=== PATIENT | female | born 1995 | race Caucasian/White ===

== ENCOUNTER 2021-01-12 05:13 | Emergency (ER) | payer OTHER ==
[~2021-01-12] VITALS: Ht 61 cm; Wt 106.6 kg
--- NOTE | 2021-01-12 06:48 | ED Cough/URI ---
General Chief Complaint: Fever-Adult/Adol Stated Complaint: COUGH,FEVER,SOA,SORE THROAT Source: patient History of Present Illness Date Seen by Provider: Jan 12, 2021 Time Seen by Provider: 06:43 Initial Comments PT ARRIVES VIA POV FROM HOME HAS BEEN SICK SINCE Thursday01/09/21 C/O SORE THROAT C/O SUBJECTIVE FEVER C/O COUGH AND CONGESTION C/O HEADACHE C/O BODY ACHES C/O NAUSEA/VOMITING/DIARRHEA YESTERDAY--VOMITED X 5 YESTERDAY, DIARRHEA X 10. NO ABDOMINAL PAIN NO LOSS OF TASTE OR SMELL NO SHORTNESS OF BREATH PT HAS BEEN ABLE TO KEEP DOWN LIQUIDS TODAY AND IS VOIDING A NORMAL AMOUNT STATES SHE DOES NOT NORMALLY TAKE TYLENOL OR MOTRIN BECAUSE THEY MAKE HER NAUSEATED. CHILD WAS SICK WITH SAME SYMPTOMS EARLIER THIS WEEK. HE TESTED NEGATIVE FOR COVID-19 PT HAS NOT BEEN VACCINATED FOR COVID-19 PT DOES NOT WORK PCP: [facility] Allergies and Home Medications Allergies Coded Allergies: acetaminophen (Unverified Allergy, Unknown, Itching, 01/12/21) "throat swells up" Patient Home Medication List Home Medication List Reviewed: Yes Amoxicillin (Amoxicillin) 875 Mg Tablet, 875 MG PO BID Prescribed by: JOB ROSADO on 01/12/21 0750 Ondansetron (Ondansetron Odt) 8 Mg Tab.rapdis, 8 MG PO Q4H PRN for NAUSEA/VOMITING Prescribed by: JOB ROSADO on 01/12/21 0750 Review of Systems Review of Systems Constitutional: see HPI, fever, malaise EENTM: see HPI, nose congestion, throat pain Respiratory: see HPI, cough; No short of breath Cardiovascular: no symptoms reported Gastrointestinal: see HPI; No abdominal pain; diarrhea, loss of appetite, nausea, vomiting Genitourinary: no symptoms reported : No LMP: Dec 30, 2020 Musculoskeletal: no symptoms reported Skin: no symptoms reported Psychiatric/Neurological: See HPI, Headache Hematologic/Lymphatic: No Symptoms Reported Immunological/Allergic: no symptoms reported Past Dshdfja-Isrscq-Lxkiyz Hx Patient Social History Tobacco Use?: No Substance use?: No Alcohol Use?: No Past Medical History Surgeries: Yes ( X 1; HERNIA REPAIR AGE 16 MONTHS) Abdominal, Section Respiratory: No Cardiac: No Neurological: No Reproductive Disorders: No Genitourinary: No Gastrointestinal: Yes (HERNIA REPAIR INFANT) Musculoskeletal: Yes (PSORIATIC ARTHRITIS) Arthritis Endocrine: Yes (MORBID OBESITY) HEENT: No Cancer: No Psychosocial: No Integumentary: Yes (PSORIATIC ARTHRITIS) Psoriasis Physical Exam Vital Signs - First Documented 01/12/21 06:30 Temp 37.9 Pulse 118 Resp 18 B/P (MAP) 150/80 (103) Pulse Ox 98 O2 Delivery Room Air Capillary Refill : Height: '" Weight: lbs. oz. 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, no motor/sensory deficits, alert, normal mood/affect, oriented x 3 Skin: normal color, warm/dry; No rash Progress/Results/Core Measures Suspected Sepsis SIRS Temperature: Pulse: Respiratory Rate: Blood Pressure / Mean: Results/Orders Lab Results Laboratory Tests Test 01/12/21 06:35 Range/Units Urine Color YELLOW Urine Clarity CLEAR Urine pH 7.0 5-9 Urine Specific [place] 1.015 L 1.016-1.022 Urine Protein NEGATIVE NEGATIVE Urine Glucose (UA) NEGATIVE NEGATIVE Urine Ketones NEGATIVE NEGATIVE Urine Nitrite NEGATIVE NEGATIVE Urine Bilirubin NEGATIVE NEGATIVE Urine Urobilinogen 0.2 < = 1.0 MG/DL Urine Leukocyte Esterase 1+ H NEGATIVE Urine RBC (Auto) NEGATIVE NEGATIVE Urine RBC NONE /HPF Urine WBC 0-2 /HPF Urine Squamous Epithelial Cells 5-10 /HPF Urine Crystals NONE /LPF Urine Bacteria TRACE /HPF Urine Casts NONE /LPF Urine Mucus SMALL H /LPF Urine Culture Indicated NO Influenza Type A (RT-PCR) Not Detected Not Detecte Influenza Type B (RT-PCR) Not Detected Not Detecte SARS-CoV-2 RNA (RT-PCR) Not Detected Not Detecte Group A Streptococcus Screen NEGATIVE NEGATIVE My Orders Orders - JOB ROSADO DO Urine Bedside (01/12/21 06:44) Rapid Strep A Screen (01/12/21 06:44) Ua Culture If Indicated (01/12/21 06:44) Influenza A And B By Pcr (01/12/21 06:44) Covid 19 Inhouse Test (01/12/21 06:44) Vital Signs/I&O 01/12/21 01/12/21 06:30 06:30 Temp 37.9 Pulse 118 Resp 18 B/P (MAP) 150/80 (103) Pulse Ox 98 O2 Delivery Room Air Room Air Capillary Refill : Progress Note : Progress Note PLACED IN ISOLATION ROOM PPE WORN AT ALL TIMES COVID-19 TESTING PERFORMED PT DECLINES TYLENOL OR MOTRIN AT THIS TIME NO COUGH NO HYPOXIA NO DYSPNEA NO VOMITING OR DIARRHEA Departure Impression Primary Impression: Person under investigation for COVID-19 Additional Impressions: Pharyngitis Upper respiratory infection Disposition: 01 HOME, SELF-CARE Condition: Stable Departure-Patient Inst. Decision time for Depature: 07:45 Referrals: [facility] [place] (PCP/Family) Primary Care Physician Patient Instructions: COVID-19 Overview, Sore Throat in Adults, Upper Respiratory Infection ED Add. Discharge Instructions: LOTS OF CLEAR LIQUIDS--WATER, BROTH, JELLO, GATORADE BRATS DIET--BANANAS, RICE, APPLESAUCE, TOAST, SALTINES TYLENOL 1 GRAM / MOTRIN 800 MG 4 TIMES A DAY FOR PAIN OR FEVER QUARANTINE YOURSELF AND ALL HOUSEHOLD MEMBERS. YOU NEED TO BE RETESTED FOR COVID-19 IN 2-3 DAYS--YOU MAY GO TO [facility] [place] FOR THIS. All discharge instructions reviewed with patient and/or family. Voiced understanding. Scripts Ondansetron (Ondansetron Odt) 8 Mg Tab.rapdis 8 MG PO Q4H PRN for NAUSEA/VOMITING, #10 TAB Prov: JOB ROSADO DO 01/12/21 Amoxicillin (Amoxicillin) 875 Mg Tablet 875 MG PO BID, #20 TAB Prov: JOB ROSADO DO 01/12/21 JOB ROSADO DO Jan 12, 2021 06:48
[2021-01-12 06:50] LABS: BILIRUBIN,URINE NEGATIVE (NEGATIVE); CLARITY,URINE CLEAR; COLOR,URINE YELLOW; GLUCOSE, URINE (UA) NEGATIVE (NEGATIVE); KETONES,URINE NEGATIVE (NEGATIVE); LEUKOCYTE ESTERASE ,URINE 1+ (NEGATIVE); NITRITE,URINE NEGATIVE (NEGATIVE); PROTEIN,URINE NEGATIVE (NEGATIVE)
[2021-01-12 06:58] LABS: BACTERIA,URINE TRACE /HPF; WBC,URINE 0-2 /HPF
[2021-01-12] MEDS ORDERED: ONDA8TAB13 PO (07:50)
[2021-01-12] MEDS ORDERED: AMOX875T2 PO (07:50)
[2021-01-12 08:01] VITALS: BP 158/95
== END 2021-01-12 08:00 | disposition home or self-care (01) ==
LOC: ER 05:19
DX: J02.9 Acute pharyngitis, unspecified (principal); J06.9 Acute upper respiratory infection, unspecified; E66.01 Morbid (severe) obesity due to excess calories; Z20.822 Contact with and (suspected) exposure to COVID-19
CPT/HCPCS: 81000; 84703; 87430; 87636; 99283

== ENCOUNTER 2021-01-14 08:18 | Emergency (ER) | payer OTHER ==
[~2021-01-14] VITALS: Ht 154 cm; Wt 104.3 kg
[~2021-01-14 08:18] MED LIST: AMOX875T2 PO; ONDA8TAB13 PO
--- NOTE | 2021-01-14 09:01 | ED Integumentary General ---
General Chief Complaint: Skin/Wound Problems Stated Complaint: RASH Nursing Triage Note: pt presents to ed via pov from home with complaints of rash on bilateral hands/arms x 3 days. Source: patient Exam Limitations: no limitations History of Present Illness Date Seen by Provider: Jan 14, 2021 Time Seen by Provider: 08:51 Initial Comments Patient is a 25-year-old female who presents to the emergency department today with a chief complaint of diffuse rash to her upper extremities and a slight exacerbation of her pre-existing psoriasis. Patient has a child at home that has been sick with a rash over the course of the last week. She also was seen in the emergency department on Thursday and tested for strep and Covid both of which were negative but was placed on amoxicillin for a pharyngitis. Patient states when she woke up this morning she had a spotty red rash to her extremities and it felt like her skin was "on fire". Patient states that her plaque on her left flank was draining and a little bloody this morning. She denies any fevers or chills, she does have a little bit of an ongoing sore throat. No shortness of breath, nausea vomiting or urinary complaints. She has not taken anything for the rash but does state that as she has been up and around this morning it seems to be improving. All other review of systems reviewed and negative except as stated. Timing/Duration: this morning Severity: mild Location: hands, extremities Possible Cause: exposure to illness Associated Symptoms: change in skin texture, rash, sore throat Allergies and Home Medications Allergies Coded Allergies: acetaminophen (Unverified Allergy, Unknown, Itching, 01/12/21) "throat swells up" Patient Home Medication List Home Medication List Reviewed: Yes Amoxicillin (Amoxicillin) 875 Mg Tablet, 875 MG PO BID Prescribed by: JOB ROSADO on 01/12/21 0750 Ondansetron (Ondansetron Odt) 8 Mg Tab.rapdis, 8 MG PO Q4H PRN for NAUSEA/VOMITING Prescribed by: JOB ROSADO on 01/12/21 0750 Review of Systems Review of Systems Constitutional: see HPI EENTM: no symptoms reported, throat pain Respiratory: no symptoms reported Cardiovascular: no symptoms reported Gastrointestinal: no symptoms reported Genitourinary: no symptoms reported Musculoskeletal: no symptoms reported Skin: pruritus, rash All Other Systems Reviewed Negative Unless Noted: Yes Past Lxagbui-Duimbb-Vhscpm Hx Patient Social History Tobacco Use?: No Substance use?: No Alcohol Use?: No Pt feels they are or have been: No Past Medical History Surgery/Hospitalization HX: sx: c-sec, hernia repair Surgeries: Yes ( X 1; HERNIA REPAIR AGE 16 MONTHS) Abdominal, Section Respiratory: No Cardiac: No Neurological: No Reproductive Disorders: No Genitourinary: No Gastrointestinal: Yes (HERNIA REPAIR ) Musculoskeletal: Yes (PSORIATIC ARTHRITIS) Arthritis Endocrine: Yes (MORBID OBESITY) HEENT: No Cancer: No Psychosocial: No Integumentary: Yes (PSORIATIC ARTHRITIS) Psoriasis Physical Exam Vital Signs Vital Signs - First Documented 01/14/21 08:38 Temp 36.1 Pulse 97 Resp 18 B/P (MAP) 146/101 (116) Capillary Refill : Less Than 3 Seconds General Appearance: WD/WN, no apparent distress HEENT: PERRL/EOMI Neck: full range of motion, supple, normal inspection Cardiovascular: regular rate, rhythm Respiratory: lungs clear, normal breath sounds, no respiratory distress, no accessory muscle use Extremities: normal range of motion, normal inspection Neurologic/Psychiatric: alert, normal mood/affect, oriented x 3 Skin: normal color, warm/dry, other (Very scant appearing spotty red rash to her left hand and right forearm. Patient states this is improving. She has psoriatic plaque to her left flank that is well demarcated and does not appear infected, also 1 on her left elbow that appears well demarcated and not infected.) Progress/Results/Core Measures Results/Orders Vital Signs/I&O 01/14/21 08:38 Temp 36.1 Pulse 97 Resp 18 B/P (MAP) 146/101 (116) Blood Pressure Mean: 116 Departure Impression Primary Impression: Dermatitis Disposition: 01 HOME, SELF-CARE Condition: Stable Departure-Patient Inst. Decision time for Depature: 08:59 Referrals: [facility] (PCP/Family) Primary Care Physician Patient Instructions: Dermatitis Add. Discharge Instructions: Take over the counter Benadryl 1-2 pills every 6-8 hours as needed for itching. Take Pepcid 20mg daily for the next week. Return to the ER for any worsening, fever, drainage from your psoriasis patches, increasing redness or pain. Follow up with [facility]. VIOLET SHAHID MD Jan 14, 2021 09:01
[2021-01-14 09:04] VITALS: BP 146/101
== END 2021-01-14 09:04 | disposition home or self-care (01) ==
LOC: EDUNIT# 08:18 → ER 08:21
DX: L30.9 Dermatitis, unspecified (principal); E66.01 Morbid (severe) obesity due to excess calories
CPT/HCPCS: 99281